=== PATIENT | female | born 1990 | race Two or more races ===

== ENCOUNTER 2021-07-30 08:35 | Inpatient (IN) | payer OTHER ==
[2021-07-30] MEDS: ELECTROLYTE-148 SOLN 1,000 ML IV SCH ×2 (09:35→11:00)
[2021-07-30] MEDS ORDERED: FENTANYL/BUPIVACAINE/NS/PF - PCEA - 50 ML DISP.SYRIN EP ONE (09:55)
[2021-07-30] MEDS ORDERED: BUPIVACAINE HCL/PF 0.25% (2.5MG/ML) 10 ML VIAL ONE (10:03)
[2021-07-30] MEDS ORDERED: LIDOCAINE HCL/PF 2% SDV 5ML VIAL ONE (10:16)
[2021-07-30 10:17] VITALS: BMI 36.1
[2021-07-30] MEDS ORDERED: LIDOCAINE 1%/EPI 1:100000 (20 ML MULTI DOSE VIAL) ONE (10:17)
[2021-07-30] MEDS ORDERED: FENTANYL/BUPIVACAINE/NS/PF - PCEA - 50 ML DISP.SYRIN EP SCH (11:00)
[2021-07-30] MEDS ORDERED: NALOXONE HCL 0.4 MG/ML VIAL IVPUSH PRN (11:01)
[2021-07-30 11:02] LABS: BASO % 0.2 % (0-2.0); EOS % 0.2 % (0-4.5); HEMATOCRIT 37.1 % (32.4-45.2); HEMOGLOBIN 12.5 GM/dL (10.7-15.3); LYMPH % 18.9 % (8-40); MCH 28.8 pg (25.7-33.7); MCHC 33.7 g/dl (32.0-36.0); MEAN CELL VOLUME 85.5 fl (80-96); MEAN PLT VOLUME 9.1 fl (7.5-11.1); MONO % 6.2 % (3.8-10.2); NEUT % 74.5 % (42.8-82.8); PLATELET COUNT 182 10^3/uL (134-434); RBC 4.34 M/mm3 (3.60-5.2); WHITE BLOOD COUNT 9.5 K/mm3 (4.0-10.0)
[2021-07-30 11:23] LABS: BLOOD UREA NITROGEN 7.9 mg/dL (7-18); CALCIUM 8.3 mg/dL (8.5-10.1)
[2021-07-30 11:27] LABS: CREATININE 0.6 mg/dL (0.55-1.3)
[2021-07-30 11:37] LABS: ACTIVATED PTT 33.3 SECONDS (25.2-36.5); INR 0.95 (0.83-1.09); PROTHROMBIN TIME (PATIENT) 10.9 SEC (9.7-13.0)
[2021-07-30] MEDS ORDERED: OXYTOCIN 20 UNITS in 0.9% NS 20 UNIT/1,000 ML INFUS.BAG IV ONE (13:11)
[2021-07-30] MEDS ORDERED: BISACODYL 10 MG SUPP.RECT RC PRN (13:35)
[2021-07-30] MEDS ORDERED: METHYLERGONOVINE MALEATE 0.2 MG/1 ML AMP IM PRN (13:35)
[2021-07-30] MEDS ORDERED: BENZOCAINE 28 GM HEMORRHOIDAL OINTMENT TP PRN (13:35)
[2021-07-30] MEDS ORDERED: WITCH HAZEL 50% (TUCKS) 40 PAD/JAR PAD TP PRN (13:35)
[2021-07-30] MEDS ORDERED: ACETAMINOPHEN 325 MG TABLET (FP) PO PRN (13:35)
[2021-07-30] MEDS ORDERED: BENZOCAINE 20% 57 GM BOTTLE TP PRN (13:35)
[2021-07-30] MEDS ORDERED: OXYTOCIN 20 UNITS in 0.9% NS 20 UNIT/1,000 ML INFUS.BAG IV SCH (13:45)
[2021-07-30] MEDS: IBUPROFEN 600 MG TABLET (FP) PO PRN ×2 (16:02→21:12)
[2021-07-30] MEDS: FERROUS SO4 325 MG TABLET (FP) PO SCH (18:00)
[2021-07-31 08:45] LABS: BASO % 0.2 % (0-2.0); EOS % 0.8 % (0-4.5); HEMATOCRIT 32.5 % (32.4-45.2); HEMOGLOBIN 10.6 GM/dL (10.7-15.3); LYMPH % 22.9 % (8-40); MCH 28.2 pg (25.7-33.7); MCHC 32.6 g/dl (32.0-36.0); MEAN CELL VOLUME 86.5 fl (80-96); MONO % 5.7 % (3.8-10.2); NEUT % 70.4 % (42.8-82.8); PLATELET COUNT 173 10^3/uL (134-434); RBC 3.75 M/mm3 (3.60-5.2); RDW 14.8 % (11.6-15.6); WHITE BLOOD COUNT 9.5 K/mm3 (4.0-10.0)
[2021-07-31] MEDS: FERROUS SO4 325 MG TABLET (FP) PO SCH ×2 (08:56→16:47)
[2021-07-31] MEDS: IBUPROFEN 600 MG TABLET (FP) PO PRN ×2 (08:56→16:47)
[2021-07-31] MEDS: PRENATAL VITAMINS W/ FOLIC ACID TABLET (FP) PO SCH (09:01)
[2021-07-31] MEDS ORDERED: SENNOSIDES/DOCUSATE COMBO (SENNA PLUS) TABLET (UD) PO PRN (22:00)
[2021-08-01] MEDS: FERROUS SO4 325 MG TABLET (FP) PO SCH (09:00)
[2021-08-01] MEDS: IBUPROFEN 600 MG TABLET (FP) PO PRN (10:09)
[2021-08-01] MEDS: PRENATAL VITAMINS W/ FOLIC ACID TABLET (FP) PO SCH (10:09)
[2021-08-01 10:16] VITALS: BP 120/80; PULSE 98; TEMP 97.9
== END 2021-08-01 12:15 | disposition home or self-care (01) | DRG 560 ==
LOC: JDEL 08:35 → JLDR 09:30 → J3W 14:55
PROVIDERS: ADMIT Obstetrics & Gynecology; ATTEND Obstetrics & Gynecology
PROC: 10E0XZZ Delivery of Products of Conception, External Approach (ICD-10-PCS; principal; 2021-07-30)
PROC: 10907ZC Drainage of Amniotic Fluid, Therapeutic from Products of Conception, Via Natural or Artificial Opening (ICD-10-PCS; 2021-07-30)
DX: O80 Encounter for full-term uncomplicated delivery (principal); Z3A.39 39 weeks gestation of pregnancy; Z37.0 Single live birth
CPT/HCPCS: 36415; 59025; 59409; 80048; 85025; 85610; 85730; 86780; 86850; 86900; 86901; C9803; U0003; U0005